=== PATIENT | male | born 1995 | race Two or more races ===

== ENCOUNTER → 2016-10-29 | Outpatient (CLI) | payer SELFPAY | LOC: M LRY 13:53 | PROVIDERS: ATTEND Nurse Practitioner Family | DX: M25.511 Pain in right shoulder (principal); Z53.9 Procedure and treatment not carried out, unspecified reason ==

== ENCOUNTER 2017-01-02 13:56 | Day surgery (SDC) | payer OTHER, SELFPAY ==
[~2017-01-02] VITALS: Ht 162.6 cm; Wt 97.7 kg
--- NOTE | 2017-01-02 14:56 | REP ---
Clinical: Trauma. Technique: AP, lateral, bilateral oblique views of the right first digit. Findings: There is partial amputation of the distal first digit with comminuted fracture fragments of the residual portion of the distal phalanx. Impression: Partial amputation of the distal phalanx with comminuted fracture fragments of the residual distal phalanx. Signed by Ricardo Fuentes MD 01/02/2017 02:47 P
[2017-01-02] MEDS ORDERED: CEFAZOLIN SOD 1 GM in APPROPRIATE DILUENT 1 EA IV ONE ×2 (15:30→16:15)
[2017-01-02] MEDS ORDERED: MORPHINE 4 MG/ML 1ML SYRINGE IV ONE (15:30)
[2017-01-02] MEDS ORDERED: NS 1,000 ML IV ONE (15:45)
[2017-01-02] MEDS ORDERED: ONDANSETRON 4MG/2ML VIAL (J2405) IV ONE (15:45)
[2017-01-02] MEDS ORDERED: ADACEL/BOOSTRIX VACCINE (DIPHTH/PERTUSS/ACELL/TETANUS)0.5ML SYR (90715) IM ONE (15:45)
[2017-01-02] MEDS ORDERED: LIDOCAINE 1% MDV 20ML VIAL As Ordered ONE (16:52)
[2017-01-02] MEDS ORDERED: LIDOCAINE 1% MDV 20ML VIAL IM ONE (17:00)
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
[2017-01-02] MEDS ORDERED: LIDOCAINE 1% SDV INJ 30 ML VIAL As Ordered ONE (22:05)
[2017-01-02] MEDS ORDERED: PROPOFOL 200 MG/20 ML VIAL As Ordered ONE (22:09)
[2017-01-02] MEDS ORDERED: LIDOCAINE 2% INJ 100 MG/5 ML SDV (FOR ANES.) As Ordered ONE (22:09)
[2017-01-02] MEDS ORDERED: ONDANSETRON 4MG/2ML VIAL (J2405) As Ordered ONE (22:09)
[2017-01-02] MEDS ORDERED: fentaNYL 100 MCG/2 ML INJECTION (J3010) As Ordered ONE ×2 (22:09→22:11)
[2017-01-02] MEDS ORDERED: METOCLOPRAMIDE INJ 10MG/2ML VIAL (J2765) As Ordered ONE (22:09)
[2017-01-02] MEDS ORDERED: MIDAZOLAM INJ 2 MG/2 ML VIAL (J2250) As Ordered ONE (22:09)
[2017-01-02] MEDS ORDERED: KETOROLAC 60 MG/2 ML VIAL (J1885) As Ordered ONE (22:11)
[2017-01-02] MEDS ORDERED: ceFAZolin 2 GM/D5W 50 ML IV BAG (J0690) As Ordered ONE (22:14)
[2017-01-02] MEDS ORDERED: LR 1,000 ML IV SCH (23:15)
[2017-01-02] MEDS ORDERED: MEPERIDINE INJ 25 MG/ML VIAL (J2175) IV PRN (23:15)
[2017-01-02] MEDS ORDERED: fentaNYL 100 MCG/2 ML INJECTION (J3010) IV PRN (23:15)
[2017-01-02] MEDS ORDERED: NS 1,000 ML IV SCH (23:15)
[2017-01-02] MEDS ORDERED: ONDANSETRON 4MG/2ML VIAL (J2405) IV PRN (23:15)
[2017-01-02] MEDS ORDERED: MORPHINE 4 MG/ML 1ML SYRINGE IV PRN (23:15)
[2017-01-02] MEDS ORDERED: METOCLOPRAMIDE INJ 10MG/2ML VIAL (J2765) IV PRN (23:15)
[2017-01-02] MEDS ORDERED: KETOROLAC 30 MG/ML VIAL (J1885) IV PRN (23:15)
[2017-01-03] VITALS (7 sets, daily range): BP systolic 124–142; BP diastolic 61–82
[2017-01-03] MEDS: NORCO, ANEXSIA 5/325MG TABLET (HYDROcodone/ACETAMINOPHEN) PO PRN ×3 (00:06→08:41)
[2017-01-03] MEDS ORDERED: NORCO, ANEXSIA 5/325MG TABLET (HYDROcodone/ACETAMINOPHEN) PO PRN (00:15)
[2017-01-03] MEDS ORDERED: KEFL500C17 PO (08:41)
[2017-01-03] MEDS ORDERED: HYDR-3713 PO (08:41)
--- NOTE | 2017-01-05 10:02 | RO ---
DATE OF PROCEDURE: 01/02/2017 PREPROCEDURE DIAGNOSIS: Traumatic, near amputation with nail plate injury to the right thumb at the distal phalanx. POSTPROCEDURE DIAGNOSIS: Traumatic, near amputation with nail plate injury to the right thumb at the distal phalanx. PROCEDURE: 1. Right thumb open distal phalanx fracture irrigation and debridement of bone, soft tissue, and skin. 2. Right thumb nail plate ablation. 3. Right thumb completion amputation and repair of wound. SURGEON: Ilia Rodríguez MD CHRONIC SPECIALIST: ANESTHESIA: General laryngeal mask anesthetic. COMPLICATIONS: None. ESTIMATED BLOOD LOSS: Less than 10 mL. SPECIMENS: None. DESCRIPTION OF PROCEDURE: Antibiotics were given intravenously preoperatively. Successful general laryngeal mask anesthetic was established, then his right upper extremity was carefully prepped and draped in the usual sterile fashion. After appropriate time-out, a tourniquet was used from the sterile finger of a sterile glove and used a combination Esmarch and tourniquet. Then, we copiously irrigated out the hematoma and clot forming around the tip of the lacerated thumb. There was a significant amount of highly comminuted bone fragments imbedded throughout the soft tissues, which were carefully removed sharply with a 15 blade and a rongeur and pickups. We then debrided down to the remnant of the distal phalanx and trimmed it back such that it was smooth. It went right back to the level of the insertion of the flexor tendon. Dorsally, the nail plate was just basically hanging by just a few threads, but it was still attached most proximally. Thus, I dissected back to the level of the insertion of the extensor tendon, then sharply excised the remaining germinal matrix including being sure to get into the edges as well. Then smoothed out the remaining portion of the exposed distal phalanx at this point. Then, I continued to copiously irrigate out this area and remove all bony fragments and loose pieces of soft tissue. Then, I was able to rotate the volar flap dorsally over the top of the exposed distal phalanx. So I did this and then sequentially secured it with several #4-0 nylon sutures after trimming back the edges of the skin to remove any damaged skin edges to allow proper healing. A nice repair was felt to have been obtained. I made sure there was no excessive tension. The tourniquet was released, held with pressure to help minimize bleeding, and then Adaptic with dry, sterile bulky finger dressing was placed over the thumb. Just prior to that, the tourniquet was released, and then the dressing was finished and applied with mild compression, and then he was awakened from general laryngeal mask anesthetic after having tolerated the procedure well and transferred to the recovery room in stable condition. There were no intraoperative complications.
== END 2017-01-03 09:10 | disposition home or self-care (01) ==
LOC: M ED 13:56 → M SDC 17:14 → M PED 23:40 → M SDC 01-03 09:10
PROVIDERS: ATTEND Orthopaedic Surgery
DX: S68.521A Partial traumatic transphalangeal amputation of right thumb, initial encounter (principal); W31.2XXA Contact with powered woodworking and forming machines, initial encounter; Y93.H3 Activity, building and construction; Y92.89 Other specified places as the place of occurrence of the external cause; Y99.0 Civilian activity done for income or pay; Z87.891 Personal history of nicotine dependence
CPT/HCPCS: 11012; 26952; 73140; 90715; 96372; 96374; 96375; 96376; 99284; J0690; J1885; J2250; J2405; J2765; J3010

== ENCOUNTER 2021-06-08 21:57 | Emergency (ER) | payer OTHER ==
[~2021-06-08] VITALS: Ht 167.6 cm; Wt 102.3 kg
[~2021-06-08 21:57] MED LIST: HYDR-3713 PO; KEFL500C17 PO
[2021-06-09] MEDS ORDERED: KETOROLAC 60MG 2ML VIAL IM ONE (00:20)
[2021-06-09] MEDS ORDERED: PERC5TAB12 PO (01:53)
[2021-06-09] MEDS ORDERED: PERCOCET 5MG/325MG TAB PO ONE (01:55)
[2021-06-09 02:32] VITALS: BP 138/72
[2021-06-09] MEDS ORDERED: OXYCODONE/APAP 5MG/325MG(BULK FOR ED) 1 TABLET PO ONE (02:35)
== END 2021-06-09 02:37 | disposition home or self-care (01) ==
LOC: M ED 21:57
DX: S92.101A Unspecified fracture of right talus, initial encounter for closed fracture (principal); S63.501A Unspecified sprain of right wrist, initial encounter; T14.8XXA Other injury of unspecified body region, initial encounter; V20.4XXA Motorcycle driver injured in collision with pedestrian or animal in traffic accident, initial encounter; Y92.410 Unspecified street and highway as the place of occurrence of the external cause; M25.512 Pain in left shoulder
CPT/HCPCS: 73030; 73110; 73590; 73610; 96372; 99283; J1885

== ENCOUNTER → 2021-06-12 | Outpatient (CLI) | payer OTHER ==
[~2021-06-12] MED LIST changes: +PERC5TAB12 PO
== END ==
LOC: M SOG 14:56
PROVIDERS: ATTEND Orthopaedic Surgery
DX: M77.31 Calcaneal spur, right foot (principal); S92.101A Unspecified fracture of right talus, initial encounter for closed fracture; X58.XXXA Exposure to other specified factors, initial encounter; Y92.9 Unspecified place or not applicable; Y99.9 Unspecified external cause status

== ENCOUNTER → 2021-06-14 | Outpatient (CLI) | payer OTHER | LOC: M PLAIMG 10:59 | PROVIDERS: ATTEND Orthopaedic Surgery | DX: S92.101A Unspecified fracture of right talus, initial encounter for closed fracture (principal) ==